=== PATIENT | female | born 1965 | race Caucasian/White ===

== ENCOUNTER 2022-02-12 19:03 | Emergency (ER) | payer SELFPAY ==
[2022-02-12] MEDS ORDERED: Sodium Chloride 0.9% 1,000 ML IV STA (20:06)
[2022-02-12] MEDS ORDERED: Metoclopramide 10 MG/2 ML SDV IVPUSH ONE (20:06)
[2022-02-12] MEDS: Sodium Chloride 0.9% 10 ML Syringe FLUSH PRN ×2 (20:26→23:04)
[2022-02-12] MEDS ORDERED: Lactated Ringers 1,000 ML IV ONE (22:36)
[2022-02-12] MEDS ORDERED: Ondansetron 4 MG/2 ML SDV IVPUSH ONE (22:36)
[2022-02-12] MEDS ORDERED: Sodium Chloride 0.9% 10 ML SDV FLUSH ONE (23:03)
[2022-02-12] MEDS ORDERED: Iopamidol 755 Mg/ML 100 ML Bottle IVPUSH ONE (23:03)
[2022-02-12] MEDS ORDERED: Sodium Chloride 0.9% 100 ML IV SCH (23:15)
[2022-02-12] MEDS ORDERED: Lactated Ringers 1,000 ML IV SCH (23:45)
[2022-02-13] MEDS ORDERED: Acetaminophen 325 MG Tab PO ONE (02:46)
== END 2022-02-13 07:12 | disposition home or self-care (01) ==
LOC: JD.ED 19:03
DX: S06.4X0A Epidural hemorrhage without loss of consciousness, initial encounter (principal); R55 Syncope and collapse; R11.2 Nausea with vomiting, unspecified; I10 Essential (primary) hypertension; E03.9 Hypothyroidism, unspecified; Z79.899 Other long term (current) drug therapy; W19.XXXA Unspecified fall, initial encounter; Y92.009 Unspecified place in unspecified non-institutional (private) residence as the place of occurrence of the external cause
CPT/HCPCS: 36415; 70450; 70496; 70498; 80053; 83690; 84484; 85025; 93005; 96374; 96375; 99284; A9270; J2405; J2765; J3360; J3490; J7030; J7120; Q9967; 93010; 99285